=== PATIENT | male | born 1965 | race Caucasian/White ===

== ENCOUNTER 2018-03-25 07:33 | Inpatient (IN) | payer OTHER ==
[2018-03-27] MEDS ORDERED: [UNRECOGNIZED DRUG - CODE] PO (02:02)
[2018-03-27] MEDS ORDERED: SIME180C7 PO (02:02)
[2018-03-27] MEDS ORDERED: ACET-73 PO (02:02)
[2018-03-27] MEDS ORDERED: GLUC-108 PO (02:02)
[2018-03-27] MEDS ORDERED: NAPR-1192 PO (02:02)
[2018-03-27] MEDS ORDERED: LORA1TAB PO (02:02)
[2018-03-27] MEDS ORDERED: FEXO-65 PO (02:02)
[2018-03-27] MEDS ORDERED: ATOR10TA PO (02:02)
[2018-03-27] MEDS ORDERED: PSYL0.5245 PO (02:02)
[2018-03-27] MEDS ORDERED: EMTR1TAB6 PO (02:02)
[2018-03-27] MEDS ORDERED: TERB12GE TP (02:02)
[2018-03-27] MEDS ORDERED: MUPI22OI2 (02:02)
[2018-03-27] MEDS ORDERED: ESOM20CA PO (02:02)
[2018-03-27] MEDS ORDERED: MAG30ORA GT (02:02)
[2018-03-27] MEDS ORDERED: NEOM28.3 TP (02:02)
[2018-03-27] MEDS ORDERED: MINO100C2 PO (02:02)
[2018-03-27] MEDS ORDERED: LISI1TAB11 PO (02:02)
== END 2018-03-26 14:02 | disposition left against medical advice (07) | DRG 894 ==
LOC: SRC 03-26 12:45
PROVIDERS: ADMIT Internal Medicine; ATTEND Internal Medicine
DX: F19.239 Other psychoactive substance dependence with withdrawal, unspecified (principal); Z75.3 Unavailability and inaccessibility of health-care facilities

== ENCOUNTER 2018-03-26 21:36 | Inpatient (IN) | payer OTHER ==
[~2018-03-26] VITALS: Ht 177.8 cm; Wt 73.0 kg
--- NOTE | 2018-03-26 22:15 | NUR ---
INTAKE ASSESSMENT BP:166/102, HR:81, RR:18, SpO2:98%, T:98 Pt is stable and able to be admitted on the unit. Unit protocols regarding medications and vital signs every four hours were explained. Pt verbalized understanding. Will continue admission upon arrival on the unit.
[2018-03-26] MEDS ORDERED: LORAZEPAM 2 MG/1 ML VIAL IM PRN (22:45)
[2018-03-26] MEDS ORDERED: MAGNESIUM HYDROXIDE 30 ML LIQUID UDC PO PRN (22:45)
[2018-03-26] MEDS ORDERED: MAG HYDROX/AL HYDROX/SIMETH 30 ML LIQUID UDC PO PRN (22:45)
[2018-03-26] MEDS ORDERED: MIRALAX 17 GM POWD.PACK PO PRN (22:45)
[2018-03-26] MEDS ORDERED: IBUPROFEN 400 MG TABLET PO PRN (22:45)
[2018-03-26] MEDS ORDERED: ONDANSETRON 4 MG/2 ML VIAL IM PRN (22:45)
[2018-03-26] MEDS ORDERED: diphenhydrAMINE 50 MG CAPSULE PO PRN (22:45)
[2018-03-26] MEDS ORDERED: LOPERAMIDE HCL 2 MG CAPSULE PO PRN (22:45)
[2018-03-26] MEDS ORDERED: DICYCLOMINE HCL 20 MG TABLET PO PRN (22:45)
[2018-03-26] MEDS ORDERED: ONDANSETRON ODT 4 MG TAB.RAPDIS SL PRN (22:45)
[2018-03-26] MEDS ORDERED: LORAZEPAM 1 MG TABLET PO PRN ×2 (22:45)
[2018-03-26 23:12] LABS: BASOPHILS % (AUTO) 0.6 % (0.0-2.0); EOSINOPHILS # (AUTO) 0.1 K/uL (0.0-0.7); EOSINOPHILS % (AUTO) 1.3 % (0.0-7.0); HEMATOCRIT 43.3 % (36.7-47.1); HEMOGLOBIN 15.2 g/dL (12.5-16.3); LYMPHOCYTES # (AUTO) 2.6 K/uL (20.0-40.0); LYMPHOCYTES % (AUTO) 40.6 % (20.5-51.5); MEAN CORPUSCULAR HGB CONC 35 g/dL (32.5-36.3); MEAN CORPUSCULAR VOLUME 93.7 fL (73.0-96.2); MONOCYTES # (AUTO) 0.4 K/uL (2.0-10.0); MONOCYTES % (AUTO) 6.9 % (0.0-11.0); NEUTROPHILS # (AUTO) 3.2 K/uL (1.8-8.9); NEUTROPHILS % (AUTO) 50.6 % (38.5-71.5); PLATELET COUNT (AUTO) 267 K/uL (152-348); RED BLOOD CELL COUNT(AUTO) 4.62 MIL/uL (4.06-5.63); WHITE BLOOD COUNT (AUTO) 6.4 K/uL (3.6-10.2)
[2018-03-26 23:41] LABS: ALANINE AMINOTRANSFERASE 62 U/L (16-63); ALKALINE PHOSPHATASE 84 U/L (50-136); AMYLASE 43 U/L (25-115); ASPARTATE AMINOTRANSFERASE 24 U/L (15-37); BILIRUBIN,TOTAL 0.3 mg/dL (0.2-1.0); CARBON DIOXIDE 25 mmol/L (21-32); CHLORIDE 104 mmol/L (98-107); CREATININE 1.2 mg/dL (0.6-1.3); GLUCOSE 86 mg/dL (74-106); LIPASE 161 U/L (73-393); MAGNESIUM 2.3 mg/dL (1.8-2.4); POTASSIUM 3.9 mmol/L (3.5-5.1); TOTAL PROTEIN, SERUM 7.8 g/dL (6.4-8.2); UREA NITROGEN, BLOOD 23 mg/dL (7-18)
--- NOTE | 2018-03-26 23:52 | NUR ---
Admission note Patient arrived in the unit at 2229. Patient is a 52 year old male who presents to [facility] for medically supervised withdrawal from Benzodiazepine. Patient is also using Crystal Methamphetamine. Patient requested to be full code and on regular diet. No known allergy. Body check done. Scab noted on right lower leg. Patient alert and oriented x 4. Respiration even and unlabored. Ambulatory and gait is steady. Speech clear. Patient reports PMH of Anxiety, PTSD , Hypertension and GERD. Patient had left lower leg surgery. No seizure, overdose and suicide history. No SI/HI. Patient was taking Xanax for anxiety and he switched to Ativan 3 weeks ago. Patient states that in [place] he was put on "04-09" which is equivalent to 5150 hold because his parents wants him to be there for using drugs. Patient currently lives with his parents and he works as a sanitation officer. Patient is seeking for treatment because he wants to get off of Ativan and Crystal Meth. He wants to get clean. He explained that the consequences from using are losing his best friend and he cannot do his job properly . He stated that most of people who lives in his area are crystal meth user and that's difficult for him to stop and stay sober. Patient is planning to go to treatment center after his stay here. He stated that his martinez friends are his support system. His longest period of sobriety was 5 weeks last March 2017. Substance History 1. Ativan -started using 3 weeks ago. Patient is currently taking 0.25 mg twice a day for 3 weeks. Last use of 0.5 mg on 03/25/18 at 0100. 2.Xanax-started using 4 years ago. Patient was taking 2 mg twice a day for "few months". Last use was 4 mg 1/2 a week ago. 3.Crystal Meth (smoke)-started using 5 years ago. Patient is currently smoking 0.2 grams for 1 1/2 weeks ago . Last use was 0.2 gram on 03/26/18 at 6 am eastern time. Treatment history [facility] -3 weeks ago - stayed for a week. Patient smokes [address] Eddie Land is his PCP in [place]. His typical withdrawal symptoms are stuffy nose, fatigue, sleeps a lot and tremors. Patient appears disheveled, is hyperverbal, has difficulty concentrating, is anxious, restless, irritable , agitated, has bilateral hand tremors and is fidgety. CIWA 10. He refused Pneumonia vaccine. Patient oriented to surroundings and how to use call light. Call light within reach. Will continue to monitor.
--- NOTE | 2018-03-26 23:56 | NUR ---
PRN Ativan administration Patient appears disheveled, is hyperverbal, has difficulty concentrating, is anxious, restless, irritable , agitated, has bilateral hand tremors and is fidgety. CIWA 10.
[2018-03-26 23:59] LABS: ETHANOL < 3 MG/DL (0-0)
[2018-03-27 00:27] LABS: *AMPHETAMINE, URINE POSITIVE (NEGATIVE); *BARBITURATE, URINE NEGATIVE (NEGATIVE); *CANNABINOID, URINE NEGATIVE (NEGATIVE); *COCCAINE, URINE NEGATIVE (NEGATIVE); *OPIATE, URINE NEGATIVE (NEGATIVE); *PHENCYCLIDINE SCREEN,URINE NEGATIVE (NEGATIVE)
--- NOTE | 2018-03-27 00:56 | NUR ---
PRN Ativan re-assessment Patient lying in bed with eyes closed. Respiration even and unlabored. Will continue to monitor.
[2018-03-27] MEDS ORDERED: GLUC-108 PO (02:02)
[2018-03-27] MEDS ORDERED: LORA1TAB PO (02:02)
[2018-03-27] MEDS ORDERED: ACET-73 PO (02:02)
[2018-03-27] MEDS ORDERED: MAG30ORA GT (02:02)
[2018-03-27] MEDS ORDERED: MUPI22OI2 (02:02)
[2018-03-27] MEDS ORDERED: SIME180C7 PO (02:02)
[2018-03-27] MEDS ORDERED: NEOM28.3 TP (02:02)
[2018-03-27] MEDS ORDERED: PSYL0.5245 PO (02:02)
[2018-03-27] MEDS ORDERED: ATOR10TA PO (02:02)
[2018-03-27] MEDS ORDERED: MINO100C2 PO (02:02)
[2018-03-27] MEDS ORDERED: LISI1TAB11 PO (02:02)
[2018-03-27] MEDS ORDERED: EMTR1TAB6 PO (02:02)
[2018-03-27] MEDS ORDERED: [UNRECOGNIZED DRUG - CODE] PO (02:02)
[2018-03-27] MEDS ORDERED: NAPR-1192 PO (02:02)
[2018-03-27] MEDS ORDERED: ESOM20CA PO (02:02)
[2018-03-27] MEDS ORDERED: TERB12GE TP (02:02)
[2018-03-27] MEDS ORDERED: FEXO-65 PO (02:02)
[2018-03-27 04:00] VITALS: BP 141/91
--- NOTE | 2018-03-27 04:00 | NUR ---
CIWA deferred Patient lying in bed with eyes closed. Respiration even and unlabored. Will continue to monitor.
--- NOTE | 2018-03-27 07:19 | NUR ---
End of shift note Patient slept 5 hours. Fluid intake 1,000. Voided x 2. No BM. Patient alert and oriented x 4. Patient was given PRN Ativan for CIWA 10 upon admission, effective. Patient did not c/o pain . Safety measures in place. Call light in reach. Will continue to monitor. Last CIWA 10
--- NOTE | 2018-03-27 07:45 | NUR ---
Start of shift Pt admitted for medically supervised withdrawal of Benzo. Pt reports use of crystal meth. Last CIWA 10 at 2400. Pt on PRN medications for withdrawal symptoms. Pt in room laying right lateral, asleep. Respirations even and unlabored. Pt arousable to voice and light touch. Pt slept 5 hours last night. Encouraged Pt to attend group therapy sessions to identify positive coping skills to maintain sobriety. Fall and Seizure Precautions. Bed in lowest position. Side rails up x2. Call light functioning and within reach. All needs attended and met. Will continue to monitor for withdrawal symptoms.
[2018-03-27 08:00] VITALS: BP 135/78
--- NOTE | 2018-03-27 08:00 | NUR ---
CIWA 9- Pt c/o anxiety, fatigue, fine tremors, and generalized discomfort. Pt is disheveled and unshaven.
[2018-03-27] MEDS ORDERED: TUBERCULIN,PURIF.PROT.DERIV. 5 TU/0.1 ML TEST ID ONE (09:00)
[2018-03-27] MEDS ORDERED: 4 DAY TAPER OF LORAZEPAM -SERENITY PROTOCOL PO PRN (09:00)
[2018-03-27] MEDS: MULTIVITAMINS,THERAPEUTIC TABLET PO SCH (09:01)
[2018-03-27] MEDS: HYDROXYZINE PAMOATE 25 MG CAPSULE PO PRN (09:01)
--- NOTE | 2018-03-27 09:05 | NUR ---
PRN Vistaril 50 mg PO for anxiety. Pt pacing around his room and unit.
[2018-03-27] MEDS: LORAZEPAM 1 MG TABLET PO SCH ×2 (09:28→15:00)
--- NOTE | 2018-03-27 09:37 | NUR ---
Clarification of Xanax use. Pt reports he was taking Xanax 2 mg BID. He has not taken Xanax for 3 weeks. He has been taking Ativan 0.25 mg PO BID. Pt refused Ativan taper and 0900 dose of [address] Franco notified of benzodiazepine use. New PRN doses ordered.
[2018-03-27] MEDS ORDERED: LORAZEPAM 0.5 MG TABLET PO PRN ×2 (10:00→17:15)
--- NOTE | 2018-03-27 10:05 | NUR ---
Reassess Vistaril- Pt reports anxiety improved. He is resting in bed.
--- NOTE | 2018-03-27 11:05 | NUR ---
PRN Ativan 0.5 mg PO for CIWA 13. Pt reports moderate anxiety, fidgety, hyperverbal, difficulty concentrating, restless legs. Pt pacing around room and unit. Seen by staff dancing in his room. Pt denies hallucinations, but reports he can keep his delusions at bay if he really concentrates.
--- NOTE | 2018-03-27 12:05 | NUR ---
Reassess Ativan- Pt in bed asleep. Respirations even an unlabored. Vital signs stable.
--- NOTE | 2018-03-27 12:09 | NUR ---
CIWA Deferred- Pt asleep
[2018-03-27 12:28] VITALS: BP 151/91
--- NOTE | 2018-03-27 15:13 | NUR ---
Hold scheduled Ativan due to Pt asleep. Resp even and unlabored.
[2018-03-27 16:30] VITALS: BP 137/98
--- NOTE | 2018-03-27 16:30 | NUR ---
MD Communication: Pt requested if he could take his Lisinopril, Truvada, and Pepcid. MD made aware with new one time orders for Lisinopril, pt's own Truvada, and Protonix ONE TIME. Orders noted and carried out. Will continue to monitor.
--- NOTE | 2018-03-27 16:35 | NUR ---
CIWA 10. Pt presents with moderate anxiety about missing some of his medications. He is fidgety and hyperverbal, minimal hand tremors, elevated BP.
[2018-03-27 16:50] VITALS: BP 137/98
[2018-03-27] MEDS ORDERED: PANTOPRAZOLE SODIUM 40 MG TABLET.DR PO ONE (17:00)
--- NOTE | 2018-03-27 17:00 | NUR ---
Pt refused Protonix because he wants his medication Nexium
[2018-03-27] MEDS: LISINOPRIL 20 MG TABLET PO SCH (17:05)
--- NOTE | 2018-03-27 17:15 | NUR ---
MD Communication: Pt noted to be sedated with current taper order. MD made aware with order to stop current Ativan taper medication and stop 0.5mg Ativan PRN. New order for 0.25mg Ativan for 03/27/18 2100, 0.25mg Ativan 03/28/18 Q12H, 0.25mg Ativan 03/29/18 0900. Orders noted and carried out.
--- NOTE | 2018-03-27 18:51 | NUR ---
End of shift Pt admitted for medically supervised withdrawal of Benzo. Pt reports use of crystal meth. Last CIWA 10 at 1630. Pt on PRN Ativan for withdrawal symptoms. PRN medication given Vistaril and Ativan. Pt was asleep most of the day. Respirations even and unlabored, VSS. Pt arousable to voice and light touch. Encouraged Pt to attend group therapy sessions to identify positive coping skills to maintain sobriety. PO fluids 1250, voids x2, no BM. Fall and Seizure Precautions. Bed in lowest position. Side rails up x2. Call light functioning and within reach. All needs attended and met. Will continue to monitor for withdrawal symptoms.
--- NOTE | 2018-03-27 19:30 | NUR ---
START OF SHIFT Pt is a 52 y/o male for admitted Benzo withdrawal. Pt also reported using crystal meth. Last CIWA was 10 at 1630. Pt continues on PRN Ativan for withdrawal symptoms. Pt was given PRN Vistaril and Ativan per day shift and was effective. Pt received sleeping in bed. Respirations are even and non labored. No s/s of distress noted.Fall and Seizure Precautions in place. All safety measures are in place.Bed in lowest position. Side rails up x2. Call light is within reach. Will continue to monitor.
[2018-03-27 20:00] VITALS: BP 144/95
[2018-03-27] MEDS: LORAZEPAM 0.5 MG TABLET PO ONE (21:47)
[2018-03-27] MEDS: ATORVASTATIN 10 MG TABLET PO SCH (21:47)
--- NOTE | 2018-03-27 22:00 | NUR ---
REFUSED MED. PT REFUSED 2100 DOSE OF ATIVAN.STATED "I FEEL OVER MEDICATED".
--- NOTE | 2018-03-28 | NUR ---
CIWA deferred Patient lying in bed with eyes closed. Respiration even and unlabored,v/s refused. Will continue to monitor.
--- NOTE | 2018-03-28 04:00 | NUR ---
CIWA deferred Patient lying in bed with eyes closed. Respiration even and unlabored,v/s refused. Will continue to monitor.
[2018-03-28] MEDS: CLONIDINE HCL 0.1 MG TABLET PO PRN (05:48)
--- NOTE | 2018-03-28 05:51 | NUR ---
PRN CLONIDINE 0.1 MG PO GIVEN FOR B/P 151/104,NC=[id number].WILL MONITOR FOR EFFECTIVENESS.
--- NOTE | 2018-03-28 06:49 | NUR ---
B/P DECREASED TO 149/97.
--- NOTE | 2018-03-28 06:50 | NUR ---
END OF SHIFT Pt is a 52 y/o male admitted Benzo withdrawal. Pt also reported using crystal meth. Last CIWA was 8 at 1999. Pt continues on PRN Ativan for withdrawal symptoms. Pt received sleeping in bed.He slept 8 hours,fluid intake was 1151 ml,voided x 3. PRN Clonidine given x 1 this morning for elevated B/P.Pt refused Ativan last night c/o feeling overmedicated and dizzy.Fall and Seizure Precautions in place. All safety measures are in place.Bed in lowest position. Side rails up x2. Call light is within reach. Will continue to monitor.
[2018-03-28] MEDS ORDERED: PANTOPRAZOLE SODIUM 40 MG TABLET.DR PO SCH (07:00)
--- NOTE | 2018-03-28 07:30 | NUR ---
start of shift note: pt is in stable condition no s/s of pain or discomfort Pt is verbalizing that he feels over medicated, will educate pt on medication administration. pt is admitted for BENZO/METH withdrawal/dependence. pt's last noted ciwa is 8. will continue to monitor pt for any changes and will attempt to meet pt's needs.
[2018-03-28] MEDS: LISINOPRIL 20 MG TABLET PO SCH (08:19)
[2018-03-28] MEDS: ACETAMINOPHEN 325 MG TABLET PO PRN (08:19)
--- NOTE | 2018-03-28 08:19 | NUR ---
PRN administration: pt with complaints of a headache verbalized " its related to the pressure of my increased B/p " administered Tylenol for headache pain of 02/04,
[2018-03-28] MEDS: MULTIVITAMINS,THERAPEUTIC TABLET PO SCH (08:20)
[2018-03-28] MEDS ORDERED: LORAZEPAM 1 MG TABLET PO SCH (09:00)
[2018-03-28] MEDS ORDERED: LISINOPRIL 20 MG TABLET PO SCH (09:00)
[2018-03-28] MEDS ORDERED: HYDROCHLOROTHIAZIDE 12.5 MG CAPSULE PO SCH (09:00)
--- NOTE | 2018-03-28 09:00 | NUR ---
ciwa assessment: ciwa is 13 pt appears moderately anxious and agitated with episodes of sweating, pt appears to have poor insight on medications and thinks that ativan will not do anything about his HTN and withdrawal. when explaining that ativan may assist in decreasing his blood pressure and help decrease his anxiety level. pt agreed to take his 0.25 md dose, pt is more agitated in regards to OTC medications that he is not receiving will endorse to MD pt's concerns.
[2018-03-28] MEDS: LORAZEPAM 0.5 MG TABLET PO SCH ×2 (09:18→21:21)
--- NOTE | 2018-03-28 09:19 | NUR ---
PRN re-assessment: PRN Tylenol was effective pt stated he felt the pressure relieve, and pain is now 2/10
[2018-03-28 09:44] VITALS: BP 132/88
[2018-03-28 13:00] VITALS: BP 121/92
--- NOTE | 2018-03-28 13:00 | NUR ---
ciwa assessment: pt's ciwa has decreased at this time, ativan was effective pt's ciwa is 10 pt with mild sweats and appears flushed and feels his head is still slightly cloudy. B/p has decreased and pt is laying in bed
[2018-03-28 13:06] LABS: HEPATITIS B SURFACE AG Negative (Negative)
[2018-03-28] MEDS: FEXOFENADINE HCL 180 MG TABLET PO SCH (14:21)
[2018-03-28] MEDS: MINOCYCLINE 100 MG PO SCH (14:21)
[2018-03-28] MEDS: NEXIUM 20 MG PO SCH (14:22)
[2018-03-28] MEDS: MUPIROCIN 2% OINT 22 GM TUBE TP SCH (14:22)
--- NOTE | 2018-03-28 14:24 | NUR ---
Therapist prompted client to attend all group therapy sessions.
[2018-03-28 16:30] VITALS: BP 141/84
--- NOTE | 2018-03-28 18:34 | NUR ---
MD Communication: Pt requested taking his Lisinopril/HCTZ as prescribed. Pt currently takes 20mg Lisinopril and 12.5 HCTZ as separate medications. MD made aware with new order for Pt to take own home medications, 20/12.5mg Lisinopril/HCTZ PO BID. First dose now. Orders noted and carried out.
[2018-03-28] MEDS ORDERED: LISI1TAB11 PO (18:40)
[2018-03-28] MEDS ORDERED: Medication Not On Formulary EA (Lisinopril/HCTZ (Lisinopril-Hctz 20-12.5 Mg Tab) 1 TAB) PO SCH (18:45)
--- NOTE | 2018-03-28 19:00 | NUR ---
end of shift note: pt is admitted for benzo withdrawal/dependence pt's last ciwa is 12 d/t agitation with home medications, pt for majority of the shift was sleeping in bed. pt's B/p has been controlled throughout the shift. will endorse pt to night order selector nurse.
[2018-03-28] MEDS: LISINOPRIL PO SCH (19:28)
[2018-03-28] MEDS: HYDROCHLOROTHIAZIDE PO SCH (19:28)
--- NOTE | 2018-03-28 19:30 | NUR ---
Start of shift note Received report from day shift nurse. Patient is a 52 year old male admitted for Benzodiazepine withdrawal. Patient is on Ativan taper. Patient was given PRN Tylenol. Last CIWA 12. Patient in the room resting. Patient presents with flat affect, depressed mood, eye avoidant, disheveled and room is messy. Safety measures in place. Call light within reach. Will continue to monitor
[2018-03-28 20:00] VITALS: BP 132/81
--- NOTE | 2018-03-28 20:00 | NUR ---
CIWA assessment Patient anxious, restless, irritable, agitated, intermittent perspiration and headache. CIWA 9
[2018-03-28] MEDS: ATORVASTATIN 10 MG TABLET PO SCH (21:21)
--- NOTE | 2018-03-29 | NUR ---
CIWA deferred Patient lying in bed with eyes closed. Respiration even and unlabored. VS refused. Will continue to monitor
--- NOTE | 2018-03-29 04:00 | NUR ---
CIWA deferred Patient lying in bed with eyes closed. Respiration even and unlabored. VS refused. Will continue to monitor
--- NOTE | 2018-03-29 06:40 | NUR ---
PRN Vistaril and Imodium administration Patient woke up anxious and c/o diarrhea x 1. Encourage fluids. Will monitor for effectiveness Addendum: 03/30/18 at 0648 by PATY SANDS LVN Error: wrong time and date
--- NOTE | 2018-03-29 07:16 | NUR ---
End of shift note Patient slept 10 hours. Fluid intake 1,710ml. Voided x 1. BM x 1. Patient presented with flat affect, depressed mood, eye avoidant, disheveled and room is messy, anxious, restless, irritable and agitated. Patient isolative and withdrawn. Patient did not require PRN medication. Safety measures in place. Call light within reach. Will continue to monitor . Last CIWA 9.
[2018-03-29 08:00] VITALS: BP 113/60
--- NOTE | 2018-03-29 08:00 | NUR ---
Start Of Shift / CIWA 14 Received 52 y/o M admitted on 03/26/18 for medically supervised xanax and ativan withdrawal with meth use. Pt continues on a 3 day ativan taper; today is the last day and tolerating well. Received pt a/ox4, respirations even and unlabored. Pt has a depressive and anxious mood, poor eye contact, w/ a flat affect, disheveled appearance. Pt presents anxiety, agitation, is fidgety, restless, irritable, c/o loose stool, sweating, headache, and tremors noted . Last CI 9, no prns given last night and slept 10 hrs. Educated pt with today's plan of care and med regimen. Side rails upx2, bed in lowest position. Call light is within reach. Will continue to monitor. Addendum: 03/29/18 at 0945 by GUIDO HERNÁNDEZ RN correct 15; pt reports mild nausea
[2018-03-29] MEDS: MULTIVITAMINS,THERAPEUTIC TABLET PO SCH (08:50)
[2018-03-29] MEDS: NEXIUM 20 MG PO SCH (08:51)
[2018-03-29] MEDS: MINOCYCLINE 100 MG PO SCH (08:53)
[2018-03-29] MEDS: MUPIROCIN 2% OINT 22 GM TUBE TP SCH (08:53)
[2018-03-29] MEDS: FEXOFENADINE HCL 180 MG TABLET PO SCH (08:53)
[2018-03-29] MEDS: LISINOPRIL PO SCH ×2 (08:54→21:00)
[2018-03-29] MEDS: HYDROCHLOROTHIAZIDE PO SCH ×2 (08:54→21:00)
[2018-03-29] MEDS ORDERED: LORAZEPAM 0.5 MG TABLET PO SCH (09:00)
[2018-03-29] MEDS ORDERED: LORAZEPAM 1 MG TABLET PO SCH (09:00)
[2018-03-29] MEDS: LOPERAMIDE HCL 2 MG CAPSULE PO PRN (09:04)
--- NOTE | 2018-03-29 09:04 | NUR ---
PRN Imodium 2 mg po prn given for c/o loose stool. Will monitor and reassess.
--- NOTE | 2018-03-29 09:20 | NUR ---
Therapist prompted client to attend all group therapy sessions. Client reports that he is feeling too much nausea to attend today.
--- NOTE | 2018-03-29 10:04 | NUR ---
Reassessment Pt reports no loose stool episodes since meds were taken. Will continue to monitor.
[2018-03-29] MEDS: ACETAMINOPHEN 325 MG TABLET PO PRN (10:19)
--- NOTE | 2018-03-29 10:19 | NUR ---
PRN Tylenol 650 mg po prn given for headache 7/10 pain. Will monitor and reassess.
[2018-03-29] MEDS: CLONIDINE HCL 0.1 MG TABLET PO PRN (11:06)
--- NOTE | 2018-03-29 11:06 | NUR ---
PRN Clonidine 0.1 mg po prn given for c/o sense of panic, extreme anxiety, pt verbalized anxiety 04/06, he feels like he is "shaking like a leaf" and is fearful of being able to function without benzos. Will continue to monitor closely and reassess.
--- NOTE | 2018-03-29 11:19 | NUR ---
Reassessment Pt verbalized headache still persist and stated he feels it is due to increased anxiety.
[2018-03-29 12:26] VITALS: BP 130/73
--- NOTE | 2018-03-29 12:30 | NUR ---
CIWA 17 Pt continues to have has an anxious mood, poor eye contact, increased anxiety, pt stated, "I feel like I am shaking like a leaf,"presents restlessness, anxiety, agitation, is fidgety, c/o nausea, loose stool, sweating, headache, and tremors noted. Pt was given clonidine previously has refuses other prns at this time. Encouraged pt to use deep breathing exercises and use diversional activities to keep mind occupied. Will continue to monitor.
[2018-03-29] MEDS ORDERED: HYDR-3895 PO (12:54)
[2018-03-29] MEDS ORDERED: CLON0.1T14 PO (12:54)
[2018-03-29 16:00] VITALS: BP 118/62
--- NOTE | 2018-03-29 16:30 | NUR ---
CIWA 13 Pt has continues to presents restlessness, anxiety, agitation, is fidgety, c/o nausea, loose stool, sweating, headache, anxious mood, frequently shifting movements, and tremors noted. Pt refuses other prns at this time. Encouraged pt to attend groups to promote coping skills. Will continue to monitor.
--- NOTE | 2018-03-29 19:21 | NUR ---
End Of Shift Pt has completed a 3 day ativan taper today and is scheduled to be discharged tomorrow. Pt had episodes of increased anxiety w/ loose stool, and headaches. Pt verbalized his fear of the unknown of leaving detox, and being unable to use benzos when in extreme cases of anxiety and stated he felt that the taper was very short. Reassured pt of comfort meds which has prescribed to take w/ pt. Pt is going to [facility] rtc tomorrow. Last CIWA 13 @1600. Imodium, acetaminophen, and clonidine prns given during shift. Safety measures in place.
--- NOTE | 2018-03-29 19:30 | NUR ---
Start of shift note Received report from day shift nurse. Patient is a 52 year old male admitted for Benzodiazepine withdrawal. Patient completed Ativan taper. Patient is medically cleared to be discharge tomorrow. Patient was given PRN Clonidine, Imodium and Tylenol. Last CIWA 13. Patient's room dirty and clothes thrown on floor. Patient presents with flat affect, depressed mood, eye avoidant , unshaven, disheveled and blunted. Safety measures in place. Call light in reach. Will continue to monitor.
[2018-03-29 20:00] VITALS: BP 122/61
--- NOTE | 2018-03-29 20:00 | NUR ---
CIWA assessment CIWA 7. Patient is anxious, restless, irritable, agitated and tremors felt but not observed
[2018-03-29] MEDS: ATORVASTATIN 10 MG TABLET PO SCH (20:13)
--- NOTE | 2018-03-29 21:00 | NUR ---
Refused Medication Patient refused to take Lisinopril & Hydrochlorothiazide. Patient states "my blood pressure is okay. I don't need it". Patient's blood pressure is 122/61.
--- NOTE | 2018-03-30 | NUR ---
CIWA deferred Patient lying in bed with eyes closed. Respiration even and unlabored. VS refused. Will continue to monitor
--- NOTE | 2018-03-30 04:00 | NUR ---
CIWA deferred Patient lying in bed with eyes closed. Respiration even and unlabored. Will continue to monitor
[2018-03-30] MEDS: LOPERAMIDE HCL 2 MG CAPSULE PO PRN (06:37)
[2018-03-30] MEDS: HYDROXYZINE PAMOATE 25 MG CAPSULE PO PRN (06:40)
--- NOTE | 2018-03-30 06:40 | NUR ---
PRN Vistaril and Imodium administration Patient woke up anxious and c/o diarrhea x 1. Encourage fluids. Will monitor for effectiveness
--- NOTE | 2018-03-30 07:02 | NUR ---
End of shift note Patient slept 11 hours. Fluid intake 500 ml. Voided x 2 . BM x 1. Patient completed Ativan taper. Patient is medically cleared to be discharge today. Scheduled medication given as ordered. Patient refused his 2100 lisinopril & hydrochlorothiazide . Per patient , he does not need it. Patient BP was 122/61. At 1999. Patient withdrawn and isolate self. Patient woke up at 0640, c/o anxiety and diarrhea x 1. Encouraged fluids. PRN Vistaril and Imodium. Endorsed to next shift to assess Imodium and Vistaril Safety measures in place. Call light in reach. Will continue to monitor. Last CIWA 9.
--- NOTE | 2018-03-30 07:30 | NUR ---
Start of Shift Elevator Erector Helper received report on 52 year old male admitted to [facility] on 03/26/18 with a scheduled discharge for today. Pt has completed an Ativan taper with a last CIWA of 9, per NOC report. Pt endorse NKA, full code and regular diet. Pt with a PMH of HTN and GERD. Pt also endorses a PPH of anxiety and PTSD. Pt was administered Imodium(diarrhea) and Vistaril(anxiety), per report. Elevator Erector Helper encounters pt in pts room. Pt is A/O x4 and able to make needs known. Clear though and speech pattern Anxious and restless with some TH and tremors noted. Pt denies any SI/HI or A/VH. Elevator Erector Helper educated pt on discharge process. Bed in low position with wheels locked and side rails up x2. Will continue to monitor, support and encourage according to plan of care. Addendum: 03/30/18 at 0741 by CHRISTIANO TINAJERO RN Pt was admitted for medical management of Benzodiazepine withdrawals
--- NOTE | 2018-03-30 07:40 | NUR ---
PRN Re-Assessment Pt endorses decreased anxiety and has had not bouts of diarrhea. Will continue to monitor, support and encourage according to plan of care.
[2018-03-30 08:15] VITALS: BP 140/78
--- NOTE | 2018-03-30 08:15 | NUR ---
CIWA 8 Pt is anxious and restless with fine tremors. Will continue to monitor, support and encourage according to plan of care.
[2018-03-30] MEDS: FEXOFENADINE HCL 180 MG TABLET PO SCH (08:27)
[2018-03-30] MEDS: MINOCYCLINE 100 MG PO SCH (08:27)
[2018-03-30] MEDS: HYDROCHLOROTHIAZIDE PO SCH (08:27)
[2018-03-30] MEDS: MULTIVITAMINS,THERAPEUTIC TABLET PO SCH (08:27)
[2018-03-30] MEDS: LISINOPRIL PO SCH (08:27)
[2018-03-30] MEDS: MUPIROCIN 2% OINT 22 GM TUBE TP SCH (08:28)
[2018-03-30] MEDS ORDERED: LORAZEPAM 1 MG TABLET PO SCH (09:00)
[2018-03-30] MEDS: NEXIUM 20 MG PO SCH ×2 (09:00→09:06)
--- NOTE | 2018-03-30 09:00 | NUR ---
Medication Non-Administration Pt states his home medication(TruVada) has been sent to his RTC and there is no supply for today. Will continue to monitor, support and encourage according to plan of care.
--- NOTE | 2018-03-30 09:32 | NUR ---
Discharge Assessment Pt is A/o x4 and able to make needs known. Pt with a clear thought and speech process. Pt is anxious and restless with fine tremors. Last CIWA 8. Pt with a flat affect and depressed mood. Pt denies SI/HI or A/VH. Pt with stable VS. Pt is stable for discharge. Pt educated on importance continued follow-up care and importance of continued sobriety. Pt encouraged to attend AA meetings and become involved in pt's own recovery process. Pt educated on all discharge medications including, name, route, time, dose and indication. Pt provided with discharge prescriptions within inside discharge bag. Pt provided with discharge educational material and received copies all discharge material including lab values and MD notes. Endorsed no further comments, questions or concerns. Pt discharged per ambulation and escorted to awaiting private car for transportation to RTC.
[2018-03-30] MEDS ORDERED: LORAZEPAM 0.5 MG TABLET PO PRN (21:00)
== END 2018-03-30 09:32 | disposition other institution (70) | DRG 895 ==
LOC: SRC 21:36
PROVIDERS: ADMIT Internal Medicine; ATTEND Internal Medicine
PROC: HZ2ZZZZ Detoxification Services for Substance Abuse Treatment (ICD-10-PCS; principal; 2018-03-26)
PROC: HZ31ZZZ Individual Counseling for Substance Abuse Treatment, Behavioral (ICD-10-PCS; 2018-03-29)
DX: F13.239 Sedative, hypnotic or anxiolytic dependence with withdrawal, unspecified (principal); F15.23 Other stimulant dependence with withdrawal; E86.0 Dehydration; E78.5 Hyperlipidemia, unspecified; F41.1 Generalized anxiety disorder; K21.9 Gastro-esophageal reflux disease without esophagitis; Z82.49 Family history of ischemic heart disease and other diseases of the circulatory system; Z82.0 Family history of epilepsy and other diseases of the nervous system; F17.210 Nicotine dependence, cigarettes, uncomplicated; F43.10 Post-traumatic stress disorder, unspecified; I10 Essential (primary) hypertension; F32.9 Major depressive disorder, single episode, unspecified; Z72.52 High risk homosexual behavior
CPT/HCPCS: 36415; 80307; 80324; 80346; 83690; 83735; 84443; 85025; 86580; 86592; 86705; 86803; 87340; 87806; G0480